=== PATIENT | female | born 1945 | race Caucasian/White ===

== ENCOUNTER → 2016-07-12 | Outpatient (CLI) | payer MEDICARE, BC ==
[~2016-07-12] MED LIST: AMBIEN10 MG PO; AMIODARONE HCL100 MG PO; AMIODARONE HCL200 MG PO; AMITIZA24 MCG PO; ANTIVERT25 MG PO; ARICEPT10 MG PO; CELEBREX200 MG PO; CORDARONE200 MG PO; COUMADIN2 MG PO; DONEPEZIL HCL10 MG PO; DUONEB 3.0-0.5 M3 ML INH; DUONEB 3.0-0.5 M3 ML NEB; ENALAPRIL-HCTZ1 EACH PO; FLAGYL500 MG PO; HYDROCHLOROTHIA25 MG PO; KEFLEX500 MG PO; KLOR-CON M1010 MEQ PO; NAMENDA10 MG PO; NORVASC5 M1 PO; NORVASC5 MG PO; PERCOCET 10-321 EACH PO; PHENERGAN25 M1 PO; PREDNISONE20 MG PO; REGLAN10 MG PO; ULTRAM50 MG PO; VASOTEC10 MG PO; XANAX0.25 MG PO; XARELTO10 MG PO; ZITHROMAX250 MG PO; ZOFRAN ODT8 M1 PO; ZOLOFT100 MG PO; ZOLPIDEM TARTRA10 MG PO
== END | disposition short-term general hospital (02) ==
LOC: CLUROL 10:17
DX: N20.0 Calculus of kidney (principal); R35.1 Nocturia; R35.0 Frequency of micturition; R39.15 Urgency of urination

== ENCOUNTER → 2016-09-14 | Outpatient (CLI) | payer MEDICARE, BC | END | disposition short-term general hospital (02) | LOC: CLNEUR 09:54 | DX: R29.818 Other symptoms and signs involving the nervous system (principal); R26.81 Unsteadiness on feet ==